=== PATIENT | male | born 2000 | race Caucasian/White ===

== ENCOUNTER 2025-02-09 12:25 | Emergency (ER) | payer BC, SELFPAY ==
[2025-02-09 12:26] VITALS: BP 159/85
[2025-02-09 12:28] VITALS: BP 159/85
--- NOTE | 2025-02-09 13:57 | ED.GENMED ---
History of Present Illness
General
Chief Complaint: Abdominal Symptoms
Time Seen by Provider: 02/09/25 13:57
History of Present Illness
History of Present Illness:
PAST MEDICAL HISTORY AND REVIEW OF OLD RECORDS
- The patient has history of constipation. I reviewed records, the patient was seen here with a thumb sprain in 2016.
Note:
CHIEF COMPLAINT(S)
Constipation.
HISTORY OF PRESENT ILLNESS
The patient is a 24-year-old male who presents with constipation, which has been ongoing for over two and a half months. He reports his last decent bowel movement was on a Friday, but it was not satisfactory. The patient follows a routine diet,
stating that deviations, such as eating pizza, sometimes help facilitate bowel movements, suggesting overeating might trigger them. He had previously taken a regimen of Senna, which provided partial relief. However, upon distraction during a
vacation in late December, the constipation recurred and remains unresolved. He describes a 'clogged' feeling in his stomach upon waking. The patient denies nausea or vomiting and has not sought previous evaluation by a real estate rep. He has
attempted laxatives recommended by his family physician but without significant improvement. He adheres to a strict diet, which may include protein powder and yogurt, though hed previously used Senna with some effect. He inquires about imaging or
additional diagnostic tests to further evaluate his condition.
SOCIAL HISTORY
The patient follows a routine diet regimen, including protein powder and yogurt.
PHYSICAL EXAM
- General: Well appearing in no distress, healthy-appearing, athletic build
- HEENT: Moist oral mucosa
- Cardiovascular: No murmurs, normal heart rate, regular rhythm, No chest wall tenderness
- Pulmonary: No respiratory distress, breath sounds are clear and equal
- Abdomen: Soft with no peritoneal signs, no tenderness, unremarkable digital rectal examination with no rectal fecal impaction
- Neurologic: Excellent strength all extremities, no coordination deficits
- Psychiatric: Appropriate mental status, normal insight and judgement
- Extremities: Nontender, no edema, moves all extremities equally
- Skin: No rash, no lesions
PROBLEM LIST
Acute problems:
- Constipation
PLAN
1. Conduct an abdominal X-ray to evaluate for potential bowel obstruction or impaction.
2. If needed, provide additional recommendations for mfvf-svt-btacfma laxatives that the patient can try for relief.
3. Refer to a real estate rep for further evaluation and management, including potential prescription medications like those used for IBS with constipation.
4. Discuss follow-up care and scheduling with a GI specialist, as appointments can take time to secure.
DIFFERENTIAL DIAGNOSIS
The Differential Diagnosis includes, in no particular order and is not limited to:
1. Functional constipation
2. Irritable bowel syndrome with constipation (IBS-C)
3. Dietary influences or changes
4. Colonic inertia
5. Obstructive defecation syndrome
6. Medication-induced constipation
7. Hypothyroidism
8. Electrolyte imbalance
9. Intestinal obstruction
10. Neuromuscular abnormalities of the colon
RADIOLOGY
- I personally viewed obstruction series and see no evidence of obstruction
UPDATE
-SUMMARY OF ENCOUNTER
The patient, a 24-year-old male, presented to the emergency department with constipation ongoing for over two and a half months. He reports feeling a 'clogged' sensation in his stomach upon waking and inadequate bowel movements. An abdominal X-ray
was conducted, and I independently interpreted it, finding no evidence of obstruction or fecal impaction. The patient has been using Senna, with partial relief in the past. Recommendations for dlzt-aon-zuqkiwf laxatives were discussed, including
senna with docusate (Senna S), magnesium citrate, Miralax (polyethylene glycol 3350), and docusate. The importance of adequate fluid intake and physical activity was also stressed.
DISPOSITION
Discharge.
PLAN
Recommend the use of qypg-hux-rmfidcw laxatives such as Senna S, magnesium citrate, and Miralax. Encourage the patient to maintain adequate hydration and physical activity. Provide referral information for a real estate rep for further evaluation.
FOLLOW-UP INSTRUCTIONS
Follow up with a real estate rep for further evaluation of chronic constipation. Ensure appointment scheduling in a timely manner.
MEDICAL DECISION MAKING
- Complexity of Data Reviewed: Chronic conditions affecting care include persistent constipation with dietary and lifestyle influences. Differential diagnosis includes functional constipation, IBS-C, colonic inertia, dietary influences, obstructive
defecation syndrome, and other causes outlined.
- Data:
Category 1: An abdominal X-ray was ordered and independently interpreted with no findings suggestive of obstruction or fecal impaction.
- Risk: The patient is being discharged with a consideration of possible escalation of care if symptoms persist, but currently deemed safe for outpatient management due to stable presentation and no acute findings on imaging.
DIAGNOSIS
Chronic constipation (ICD-10: K59.00).
Phy Exam
Physical Exam
Physical Exam:
See HPI
Course
Orders/Labs/Results
Orders:
Orders
02/09/25 14:12
CR Obstruct Series W/pa Chest Urgent
Comment:
Reason For Exam: constipation
Vital Signs
Initial and Last Documented VS:
Initial Vital Signs
Temp Pulse Resp BP Pulse Ox
36.7 C 79 20 159/85 100
02/09/25 12:26 02/09/25 12:26 02/09/25 12:26 02/09/25 12:26 02/09/25 12:26
Last Documented Vital Signs
Temp Pulse Resp BP Pulse Ox
36.7 C 71 18 115/71 90
02/09/25 12:28 02/09/25 15:33 02/09/25 15:33 02/09/25 15:33 02/09/25 15:33
*Pulse Oximetry
SaO2: 100
Oxygen Mode of Delivery: Room air
Patient hypoxic: no
*Critical Care Note
Total Time (30-74mins, 75-104mins- exclusive of procedures): Not Applicable
ED Attending Note
-
Portions of this chart may have been created with voice recognition software.� Occasional wrong word or��sound alike� substitutions may have occurred due to the inherent limitations of voice recognition software.
Discharge Plan
Departure
Patient Disposition: Home (Routine Discharge)
Date of Disposition: 02/09/25
Time of Disposition: 15:41
Patient with high blood pressure during this ER visit?: Yes
Discharge Problem:
Constipation
Instructions: Constipation, Adult (DC), BLOOD PRESSURE
Referrals:
Do,Wendy Rosado MD [Active, Gastroenterology]
NONE,* [Family Provider, Internal Medicine]
Activity Restrictions/Additional Instructions:
Other medications that can be used to treat constipation and are rgax-zfq-qwakqqd: MiraLAX (polyethylene glycol)�you can take this once or twice a day, you could continue Senokot and also add Colace; you could also try drinking half of a bottle of
msci-wwa-rjkheng magnesium citrate however that sometimes this is a little bit more harsh on the stomach. I see no sign of obstruction on the x-ray.
Interventions
Interventions:
*Risk Screen - Suicide Last Done: 02/09/25 12:28
*General Assessment Last Done: 02/09/25 12:28
*Neglect/Abuse Screening Last Done: 02/09/25 14:11
*ED- Fall Risk Assessment Last Done: 02/09/25 14:11
*ED COVID-19 Vaccine History Last Done: 02/09/25 14:11
*Nursing Disposition Last Done: 02/09/25 16:16
UD-Czkdfz-Llwsuvkqgx Assessment Last Done: 02/09/25 14:11
Discharge Date and Time
Discharge Date/Time: 02/09/25 16:21
Print Language: FAROESE
[2025-02-09 14:11] VITALS: BMI 25.3
[2025-02-09 15:33] VITALS: BP 115/71
== END 2025-02-09 16:21 | disposition home or self-care (01) ==
LOC: EMR 12:25
PROVIDERS: EMERGENCY PHYSICIAN Emergency Medicine
DX: K59.00 Constipation, unspecified (principal)
CPT/HCPCS: 99283; 74022